=== PATIENT | male | born 1990 | race Two or more races ===

== ENCOUNTER 2024-06-06 12:36 | Inpatient (IN) | payer SELFPAY ==
[2024-06-06] VITALS (8 sets, daily range): BP systolic 120–121; BP diastolic 70–81; PULSE 82–102; RESP 16–18; TEMP 98–98.1; O2SAT 94–100
[~2024-06-06] VITALS: Ht 182.9 cm; Wt 86.0 kg
--- NOTE | 2024-06-06 13:57 | ED.PDOC ---
GI ASSESSMENT HPI Comments HPI: Poor Historian. 33-year-old male presents to emergency department for evaluation of three day history of right-sided abdominal pain with associated nausea but no vomiting. Pain is constant but worse with certain movement. Denies any other acute symptoms. VITALS; TEMP: 98.6 F HEART RATE; 102 02 SAT; 98% on room air RR; 144 BP; 121/82 PMH: asthma, kidney infection PSH: denies SOCIAL HISTORY: denies tobacco use, denies etoh use, denies drug use MEDS; denies ALLERGIES; nkda REVIEW OF SYSTEMS: CONSTITUTIONAL: Denies acute: fever, diaphoresis, chills, generalized weakness. HEAD: Denies acute: headache, photophobia Eyes: Denies acute: Double vision, vision loss, eye pain, eye discharge. EARS: Denies acute: tinnitus, hearing loss, ear discharge, ear pain, THROAT: Denies acute: sore throat, swelling, difficulty swallowing , pain with swallowing, change in voice. NECK: Denies acute: neck pain, neck swelling, stiff neck. HEART: Denies acute : chest pain, palpitations, LUNGS: Denies acute: SOB, wheezing, cough, hemoptysis ABDOMEN: Denies acute: Vomiting, diarrhea, melena , hematemesis, hematochezia SKIN: Denies acute: rash, redness, lesions, itchiness. EXTREMITIES: Denies acute: calf pain, numbness, tingling, weakness, denies pain in extremity. Denies acute: Low back pain. Neuro: Denies acute: focal neurological deficit, motor or sensory focal neurological deficit, tremors, seizure like activity, confusion, dizziness, change in mental status, loss of bowel or bladder function, cauda equina like symptoms. : Denies acute: dysuria, hematuria, flank pain, increase in urinary frequency. PSYCH: Denies acute: hallucination, suicidal ideation, homicidal ideation. PHYSICAL EXAM: General: no acute distress, awake and alert. Head: normocephalic, atraumatic. Neck: supple, trachea is midline, no swelling. Throat: Normal phonation. Eyes:, no erythema, no purulent discharge, no proptosis, no icterus. Heart: regular tachycardic, no significant murmur appreciated. Lungs: no apparent respiratory distress, Able to speak in full sentences. No wheezing, no rhonchi, no crackles. No stridors Clear to auscultation bilaterally. Abdomen: Right-sided of abdomen tender to palpation, non distended, soft, no guarding, no rebound, + bowel sounds. Neuro: Awake, Alert, oriented to name, self, situation, follows commands GCS=15. Speech is normal. Skin: no petechia, no purpura, no cyanosis, non-pale, not jaundice. Lower extremities: --no - Pitting edema no deformity, no focal swelling, no calf TTP. Makes eye contact. moves all four extremities. Face: no apparent facial droop. Ambulating in the ED independently. Chief Complaint: Abdominal Pain Time Seen by MD: 13:12 Reviewed Notes: Nurses Notes, Medications, Allergies Allergies: Coded Allergies: NO KNOWN ALLERGIES (Unverified , 06/06/24) Information Source: Patient Mode of Arrival: Ambulatory Brought in by: self Past Medical History PAST MEDICAL HISTORY: Asthma Surgical History: Denies all surgeries Family History Family History: Reviewed,noncontributory to illness Social History Smoker: Non-Smoker Alcohol: Denies ETOH Use Drugs: Denies Drug Use Lives In: Home Was a procedure done? Was a procedure done?: No GI differential Dx Differential Diagnosis: Other (DDX include but not limited to diverticulitis, colitis, gastroenteritis, acute abdomen, SBO, enteritis, constipation, volvulus, appendicitis, Gallbladder disease, choledocolithiasis, ascending cholangitis, pancreatitis, intraAbdominal mass/neoplasm, hepatitis, UTI, pylonephritis, kidney stone, aneurysm, dissection, Inflammatory bowel disease, gastroparesis, ischemic bowel.) X-Ray, Labs, Meds, VS Vital Signs Date Time Temp Pulse Resp B/P (MAP) Pulse Ox O2 Delivery O2 Flow Rate FiO2 06/06/24 15:19 82 18 98 Room Air* 0 21 06/06/24 15:18 98.2 80 18 111/60 (77) 98 98.2 06/06/24 13:41 96 06/06/24 13:41 96 06/06/24 13:22 98.6 102 14 121/82 (95) 98 Lab Test 06/06/24 13:59 06/06/24 13:20 Range/Units Urine Color Yellow Yellow Urine Clarity Clear Clear Urine pH 5.5 5.0-9.0 Urine Specific [place] 1.030 1.001-1.035 Urine Protein Trace H Negative Urine Ketones Negative Negative Urine Blood Negative Negative /uL Urine Nitrite Negative Negative Urine Bilirubin Negative Negative Urine Urobilinogen Normal Negative mg/dL Urine Leukocyte Esterase Negative Negative /uL Urine RBC 1 0 - 3 /hpf Urine WBC 1 0 - 3 /hpf Urine Squamous Epithelial Cells Few <5 /hpf Urine Bacteria None seen None Seen /hpf Urine Mucus Few None Seen Urine Glucose Normal Normal mg/dL Urine Opiates Screen Neg NEGATIVE Urine Fentanyl Screen Neg NEGATIVE Urine Barbiturates Screen Neg NEGATIVE Urine Phencyclidine Screen Neg NEGATIVE Urine Amphetamines Screen Neg NEGATIVE Urine Benzodiazepines Screen Neg NEGATIVE Urine Cocaine Screen Neg NEGATIVE Urine Cannabinoids Screen Neg NEGATIVE White Blood Count 16.1 H 4.4-10.8 10^3/uL Red Blood Count 5.71 4.5-5.90 10^6/uL Hemoglobin 17.6 H 13.5-17.5 g/dL Hematocrit 48.7 41.0-53.0 % Mean Corpuscular Volume 85.2 80.0-100.0 fL Mean Corpuscular Hemoglobin 30.8 28.0-32.0 pg Mean Corpuscular Hemoglobin Concent 36.2 H 32.0-36.0 g/dL Red Cell Distribution Width 13.2 11.8-14.3 % Platelet Count 168 140-450 10^3/uL Mean Platelet Volume 8.3 6.9-10.8 fL Neutrophils (%) (Auto) 77.4 37.0-80.0 % Lymphocytes (%) (Auto) 12.2 10.0-50.0 % Monocytes (%) (Auto) 9.8 0.0-12.0 % Eosinophils (%) (Auto) 0.4 0.0-7.0 % Basophils (%) (Auto) 0.2 0.0-2.0 % Neutrophils # (Auto) 12.5 H 1.6-8.6 10 ^3/uL Lymphocytes # (Auto) 2.0 0.4-5.4 10 ^3/uL Monocytes # (Auto) 1.6 H 0-1.3 10 ^3/uL Eosinophils # (Auto) 0.1 0-0.8 10 ^3/uL Basophils # (Auto) 0 0-0.2 10 ^3/uL Nucleated Red Blood Cells 0.4 % Sodium Level 141 136-145 mmol/L Potassium Level 3.7 3.5-5.1 mmol/L Chloride Level 104 98-107 mmol/L Carbon Dioxide Level 28 20-31 mmol/L Anion Gap 9 5-15 Blood Urea Nitrogen 9 9-23 mg/dL Creatinine 1.08 0.700-1.30 mg/dL Glomerular Filtration Rate Calc 94 >90 mL/min BUN/Creatinine Ratio 8.3 L 10.0-20.0 Serum Glucose 98 74-106 mg/dL Lactic Acid Level 0.7 0.4-2.0 mmol/L Calcium Level 10.1 8.7-10.4 mg/dL Total Bilirubin 1.0 0.2-1.0 mg/dL Aspartate Amino Transferase (AST) 17 13-40 U/L Alanine Aminotransferase (ALT) 64 H 7-40 U/L Alkaline Phosphatase 81 46-116 U/L Troponin I High Sensitivity < 3 L </=54 ng/L Total Protein 8.0 5.7-8.2 g/dL Albumin 5.1 H 3.2-4.8 g/dL Lipase 35 12-53 U/L Current Medications Medications (Trade) Dose Ordered Sig/Kevin Route Start Time Stop Time Status Last Admin Sodium Chloride 1,000 ml @ 1,000 mls/hr Q1H ONCE IV 06/06/24 14:30 06/06/24 15:29 DC 06/06/24 14:30 Piperacillin Sod/ Tazobactam Sod 100 ml @ 100 mls/hr ONCE ONCE IV 06/06/24 15:00 06/06/24 15:59 DC 06/06/24 15:16 [place] [id number] Ph: [phone] DIAGNOSTIC IMAGING Diagnostic Imaging Report : [id number] Signed PATIENT: DARVIN DAMONCCT: [id number] UNIT: [id number] : 1990 LOC: ER ROOM / BED: / AGE / SEX: 33 / M ADM STATUS: REG ER SERVICE [id number] ORDERING PHYSICIAN: TRINITY MARTINEZ DO PROCEDURE(s): ABPL - CT AB PEL WO CON-NO ORAL OR IV REASON: right abd pain ORDER NUMBER(s): [id number], ACCESSION NUMBER(s): [id number] Exam: CT CT AB PEL WO CON-NO ORAL OR IV History: right abd pain Comparison Study: None available at time of dictation. Technique: Multidetector CT of the abdomen and pelvis without contrast. Axial, coronal and sagittal multiplanar reformats were performed by the technologist on a separate workstation. Radiation Dose Information: CT Dose: CTDI volume is 13.43 mGy. Dose-length product is 676.56 mGy*cm Findings: Lung bases are clear. Partially visualized heart is unremarkable. Mild hepatomegaly with hepatic steatosis. Mild splenomegaly with no focal splenic lesions. Gallbladder, pancreas and adrenal glands unremarkable. Kidneys, ureters and urinary bladder unremarkable. Prostate measures 3.5 by 4.5 cm. Mild gastric wall thickening with mild wall thickening of the proximal duodenum. Wall thickening of the mildly distended terminal ileum. The remainder of the small bowel loops unremarkable. Appendix measures up to 1.2 cm with appendicoliths proximally and distally and adjacent inflammatory reaction. Mild wall thickening of the ascending, transverse and descending colons. The sigmoid and rectum are unremarkable. No evidence of intraperitoneal free air. Trace amount of free fluid within the pelvis which is most likely from the acute appendicitis. No evidence of aortic aneurysm. Shotty mesenteric lymph nodes. Small fat containing umbilical hernia. Sclerotic focus of the left acetabulum with small sclerotic foci of the bilateral proximal femur which may represent a bone islands/blastic lesions. IMPRESSION: Findings consistent with acute appendicitis. Colitis involving ascending colon, transverse colon and descending colon. Mild wall thickening of the stomach and duodenum which may be due to inadequate distention with gastroenteritis not excluded. Wall thickening of the terminal ileum correlate for ileitis/ neoplasm. Hepatomegaly with hepatic steatosis. ATED BY: SHIVANI QUINTANA DO DICTATED DATE/TIME: 06/06/241441 SIGNED BY: SHIVANI QUINTANA DO SIGNED DATE/TIME: 06/06/241441 CC: Time of 1ST Reevaluation: 16:20 Reevaluation 1ST: Unchanged Patient Education/Counseling: Diagnosis, Treatment Family Education/Counseling: No Family Present Comments Patient presented with the above HPI.-abdominal pain-----workup was initiated. patient was found with the above mentioned diagnosis. Patient was given: Zosyn and fluids Patient ED course and VS have been stabilized. Patient has been reassessed in the ED and remained in a stable condition. Pertinent incidental findings were discussed with the patient and/or family. Patient/family voices understanding and is agreeable with plan. Patient has been observed in the ED adequate length of time to insure improvement/stability. patient was admitted to the medicine team for further evaluation and treatment of their presentation. General surgery came to the ER evaluated the patient at bedside. All the reports of any imaging studies that were ordered by myself were reviewed by myself. Departure 1 Departure Time of Disposition: 14:54 Impression: Primary Impression: Acute appendicitis Additional Impression: Leukocytosis Disposition: ADMITTED INPATIENT Admit to: Tele Condition: Stable Discharged With: Self Critical Care Note Critical Care Time?: No I personally scribed for TRINITY MARTINEZ DO ([email or web address]) on 06/06/24 at 13:57. Electronically submitted by Ros Johansen ([email or web address]). I personally scribed for TRINITY MARTINEZ DO ([email or web address]) on 06/06/24 at 14:05. Electronically submitted by Ros Johansen ([email or web address]). I personally scribed for TRINITY MARTINEZ DO ([email or web address]) on 06/06/24 at 15:15. Electronically submitted by Ros Johansen ([email or web address]). TRINITY MARTINEZ DO Jun 06, 2024 13:57
[2024-06-06 14:02] LABS: Basophils # (auto) 0 10 ^3/uL (0-0.2); Basophils % (auto) 0.2 % (0.0-2.0); Eosinophils # (auto) 0.1 10 ^3/uL (0-0.8); Eosinophils % (auto) 0.4 % (0.0-7.0); Hematocrit 48.7 % (41.0-53.0); Hemoglobin 17.6 g/dL (13.5-17.5); Lymphocytes % (auto) 12.2 % (10.0-50.0); Mean Corpuscular Hemoglobin 30.8 pg (28.0-32.0); Mean Corpuscular Hgb Conc. 36.2 g/dL (32.0-36.0); Mean Corpuscular Volume 85.2 fL (80.0-100.0); Monocytes # (auto) 1.6 10 ^3/uL (0-1.3); Monocytes % (auto) 9.8 % (0.0-12.0); Neutrophils # (auto) 12.5 10 ^3/uL (1.6-8.6); Neutrophils % (auto) 77.4 % (37.0-80.0); Nucleated Red Blood Cells % 0.4 %; Platelet Count (auto) 168 10^3/uL (140-450); Red Blood Cells 5.71 10^6/uL (4.5-5.90); Red Cell Distribution Width 13.2 % (11.8-14.3); White Blood Cell 16.1 10^3/uL (4.4-10.8)
[2024-06-06 14:17] LABS: Alanine Aminotransferase 64 U/L (7-40); Albumin 5.1 g/dL (3.2-4.8); Alkaline Phosphatase 81 U/L (46-116); Anion Gap 9 (5-15); Aspartate Aminotransferase 17 U/L (13-40); BUN/Creatinine Ratio 8.3 (10.0-20.0); Blood Urea Nitrogen 9 mg/dL (9-23); Calcium 10.1 mg/dL (8.7-10.4); Carbon Dioxide 28 mmol/L (20-31); Chloride 104 mmol/L (98-107); Glucose 98 mg/dL (74-106); Potassium 3.7 mmol/L (3.5-5.1); Sodium 141 mmol/L (136-145)
[2024-06-06] MEDS: SODIUM CHLORIDE 0.9% 1,000 ML IV ONE ×2 (14:30→19:00)
[2024-06-06] MEDS ORDERED: cefTRIAXone 1GM/50ML D5W 50 ML IV ONE (14:30)
--- NOTE | 2024-06-06 14:45 | DVH ---
Exam: CT CT AB PEL WO CON-NO ORAL OR IV History: right abd pain Comparison Study: None available at time of dictation. Technique: Multidetector CT of the abdomen and pelvis without contrast. Axial, coronal and sagittal m ultiplanar reformats were performed by the technologist on a separate workstation. Radiation Dose Information: CT Dose: CTDI volume is 13.43 mGy. Dose-length product is 676.56 mGy*cm Findings: Lung bases are clear. Partially visualized heart is unremarkable. Mild hepatomegaly with hepatic steatosis. Mild splenomegaly with no focal splenic lesions. Gallbladde r, pancreas and adrenal glands unremarkable. Kidneys, ureters and urinary bladder unremarkable. Prostate measures 3.5 by 4.5 cm. Mild gastric wall thickening with mild wall thickening of the proximal duodenum. Wall thickening of t he mildly distended terminal ileum. The remainder of the small bowel loops unremarkable. Appendix alejandra sures up to 1.2 cm with appendicoliths proximally and distally and adjacent inflammatory reaction. Mi ld wall thickening of the ascending, transverse and descending colons. The sigmoid and rectum are unr emarkable. No evidence of intraperitoneal free air. Trace amount of free fluid within the pelvis which is most likely from the acute appendicitis. No evidence of aortic aneurysm. Shotty mesenteric lymph nodes. Small fat containing umbilical hernia. Sclerotic focus of the left acetabulum with small sclerotic fo ci of the bilateral proximal femur which may represent a bone islands/blastic lesions. IMPRESSION: Findings consistent with acute appendicitis. Colitis involving ascending colon, transverse colon and descending colon. Mild wall thickening of the stomach and duodenum which may be due to inadequate distention with gastr oenteritis not excluded. Wall thickening of the terminal ileum correlate for ileitis/ neoplasm. Hepatomegaly with hepatic steatosis.
[2024-06-06 14:56] LABS: Urine Bacteria None Seen /hpf (None Seen)
[2024-06-06 15:09] LABS: Lipase 35 U/L (12-53)
[2024-06-06] MEDS: PIPERACILLIN-TAZOB 3.375GM 100 ML IV ONE (15:16)
[2024-06-06 15:17] LABS: Urine Blood Negative /uL (Negative); Urine Clarity Clear (Clear); Urine Color Yellow (Yellow); Urine Mucus FEW (None Seen); Urine Protein, UAD TRACE (Negative); Urine Urobilinogen Normal (Negative); Urine WBC 1 /hpf (0 - 3); Urine pH 5.5 (5.0-9.0)
[2024-06-06 15:27] LABS: Amphetamine Screen, Urine Neg (NEGATIVE); Barbiturate Scree,Urine Neg (NEGATIVE); Benzodiazephine Screen, Urine Neg (NEGATIVE)
[2024-06-06 15:28] LABS: Cannabinoid Screen, Urine Neg (NEGATIVE); Cocaine Screen, Urine Neg (NEGATIVE); Opiate Scree,Urine Neg (NEGATIVE); Phencyclidine Screen, Urine Neg (NEGATIVE)
--- NOTE | 2024-06-06 15:41 | DVHINCON2 ---
Date of service: Jun 06, 2024 History of Present Illness 33-year-old otherwise healthy male complaining of three day history of right lower quadrant abdominal pain without fevers chills nausea or vomiting. Past Medical History None Past Surgical History None Family History Noncontributory Social History Reports rare alcohol use. Denies any tobacco or IV drug use. Allergies: Coded Allergies: NO KNOWN ALLERGIES (Unverified , 06/06/24) Vital Signs Vital Signs Date Time Temp Pulse Resp B/P (MAP) Pulse Ox O2 Delivery O2 Flow Rate FiO2 06/06/24 15:18 98.2 80 18 111/60 (77) 98 98.2 Physical Exam GEN: Age-appropriate male in no acute distress. Alert. HEENT: Normocephalic atraumatic. Moist mucous membranes. Anicteric sclerae. CV: RRR Respiratory: CTAB ABD: Localized right lower quadrant tenderness to palpation with minimal guarding. Nondistended. CT of the abdomen and pelvis: Appendix measuring up to 1.2 cm with appendicolith it is with adjacent inflammatory reaction consistent with acute appendicitis Labs/Diagnostic Data Labs Test 06/06/24 13:59 06/06/24 13:20 Range/Units Urine Color Yellow Yellow Urine Clarity Clear Clear Urine pH 5.5 5.0-9.0 Urine Specific [place] 1.030 1.001-1.035 Urine Protein Trace H Negative Urine Ketones Negative Negative Urine Blood Negative Negative /uL Urine Nitrite Negative Negative Urine Bilirubin Negative Negative Urine Urobilinogen Normal Negative mg/dL Urine Leukocyte Esterase Negative Negative /uL Urine RBC 1 0 - 3 /hpf Urine WBC 1 0 - 3 /hpf Urine Squamous Epithelial Cells Few <5 /hpf Urine Bacteria None seen None Seen /hpf Urine Mucus Few None Seen Urine Glucose Normal Normal mg/dL Urine Opiates Screen Neg NEGATIVE Urine Fentanyl Screen Neg NEGATIVE Urine Barbiturates Screen Neg NEGATIVE Urine Phencyclidine Screen Neg NEGATIVE Urine Amphetamines Screen Neg NEGATIVE Urine Benzodiazepines Screen Neg NEGATIVE Urine Cocaine Screen Neg NEGATIVE Urine Cannabinoids Screen Neg NEGATIVE White Blood Count 16.1 H 4.4-10.8 10^3/uL Red Blood Count 5.71 4.5-5.90 10^6/uL Hemoglobin 17.6 H 13.5-17.5 g/dL Hematocrit 48.7 41.0-53.0 % Mean Corpuscular Volume 85.2 80.0-100.0 fL Mean Corpuscular Hemoglobin 30.8 28.0-32.0 pg Mean Corpuscular Hemoglobin Concent 36.2 H 32.0-36.0 g/dL Red Cell Distribution Width 13.2 11.8-14.3 % Platelet Count 168 140-450 10^3/uL Mean Platelet Volume 8.3 6.9-10.8 fL Neutrophils (%) (Auto) 77.4 37.0-80.0 % Lymphocytes (%) (Auto) 12.2 10.0-50.0 % Monocytes (%) (Auto) 9.8 0.0-12.0 % Eosinophils (%) (Auto) 0.4 0.0-7.0 % Basophils (%) (Auto) 0.2 0.0-2.0 % Neutrophils # (Auto) 12.5 H 1.6-8.6 10 ^3/uL Lymphocytes # (Auto) 2.0 0.4-5.4 10 ^3/uL Monocytes # (Auto) 1.6 H 0-1.3 10 ^3/uL Eosinophils # (Auto) 0.1 0-0.8 10 ^3/uL Basophils # (Auto) 0 0-0.2 10 ^3/uL Nucleated Red Blood Cells 0.4 % Sodium Level 141 136-145 mmol/L Potassium Level 3.7 3.5-5.1 mmol/L Chloride Level 104 98-107 mmol/L Carbon Dioxide Level 28 20-31 mmol/L Anion Gap 9 5-15 Blood Urea Nitrogen 9 9-23 mg/dL Creatinine 1.08 0.700-1.30 mg/dL Glomerular Filtration Rate Calc 94 >90 mL/min BUN/Creatinine Ratio 8.3 L 10.0-20.0 Serum Glucose 98 74-106 mg/dL Lactic Acid Level 0.7 0.4-2.0 mmol/L Calcium Level 10.1 8.7-10.4 mg/dL Total Bilirubin 1.0 0.2-1.0 mg/dL Aspartate Amino Transferase (AST) 17 13-40 U/L Alanine Aminotransferase (ALT) 64 H 7-40 U/L Alkaline Phosphatase 81 46-116 U/L Troponin I High Sensitivity < 3 L </=54 ng/L Total Protein 8.0 5.7-8.2 g/dL Albumin 5.1 H 3.2-4.8 g/dL Lipase 35 12-53 U/L Assessment 1. Acute appendicitis Plan/Recommendation 1. Laparoscopic appendectomy possible open surgery Informed consent: The surgery and its risks including but not limited to infection, bleeding requiring possible blood transfusion with the risk of hepatitis or HIV infection, open surgery, possibility that the abdominal pain is caused by different intra-abdominal pathology other than acute appendicitis in which case we will proceed with the appendectomy if it is safe to do so and then treat the problem according to intraoperative findings were explained to the patient. All questions were answered to his satisfaction. He expressed verbal understanding and wished to proceed with the surgery. Plan discussed with: Patient FIOR ODOM MD Jun 06, 2024 15:41
[2024-06-06] MEDS: ACETAMINOPHEN IV 1000 MG/100ML (10MG/ML) IV ONE (15:45)
[2024-06-06] MEDS: GABAPENTIN 400 MG CAP PO ONE (15:45)
[2024-06-06] MEDS: CELECOXIB 100 MG CAP PO ONE (15:45)
[2024-06-06] MEDS: LIDOCAINE W/ EPINEPHRINE 1% 20ML VIAL ONE (15:48)
[2024-06-06] MEDS ORDERED: LIDOCAINE 2% (LOCAL ANESTH.) PF 5ml SDV ONE (15:50)
[2024-06-06] MEDS ORDERED: ONDANSETRON HCL 4 MG/2 ML VIAL ONE (15:52)
[2024-06-06] MEDS ORDERED: DexAMETHasone SOD PHOS 10MG/1ML VIAL INJ ONE (15:52)
[2024-06-06] MEDS ORDERED: KETOROLAC TROMETH 30 MG/ML 1ML VIAL ONE (15:52)
[2024-06-06] MEDS ORDERED: KETAMINE 50mg/ML 1ml syringe ONE (15:52)
[2024-06-06] MEDS ORDERED: fentaNYL CITRATE 100 MCG/2 ML VL ONE (15:53)
[2024-06-06] MEDS ORDERED: GLYCOPYRROLATE 0.2 MG/ML 1ML VIAL ONE (15:53)
[2024-06-06] MEDS ORDERED: ROCURONIUM 10MG/ML 10ML VIAL IV ONE (15:53)
[2024-06-06] MEDS ORDERED: SUGAMMADEX 200mg/2ml Vial (100MG/ML) IV ONE (15:53)
[2024-06-06] MEDS ORDERED: PROPOFOL 10 MG/ML 20 ML IV ONE (15:53)
[2024-06-06] MEDS ORDERED: LIDOCAINE 2% TOPICAL JELLY 5 ML URJT TOP ONE (15:54)
--- NOTE | 2024-06-06 17:44 | DVHOP2 ---
Operative Report - 2 Report Details Date: 06/06/24 Preop Diagnosis: 1. Acute appendicitis Postop Diagnosis: 1. Same Surgeon: Fior Odom MD Tool Storage Attendant: None Anesthesiologist: Asad Ojeda CRNA Anesthesia: General, Local Consent: The surgery and its risks including but not limited to infection, bleeding req uiring possible blood transfusion with the risk of hepatitis or HIV infection, open surgery, possible perioperative VT or stroke were explained to the patient. All questions were answered to his satisfaction. He expressed verbal understanding and wished to proceed with the surgery. Complications: None Estimated Blood Loss: 20 mL Fluids: 800 mL Name of Procedure Performed Laparoscopic appendectomy Procedure Details Procedure Details: After induction of general anesthesia, a Velarde catheter was placed by the OR nursing staff. Patient's abdomen was prepped and draped in standard surgical fashion. A small infraumbilical incision was made and this incision was taken through the abdominal wall down to the fascia which was opened sharply. Peritoneum was then bluntly divided gaining access to the intra-abdominal cavity. Interrupted 0 Vicryl sutures were placed through the fascial incision and using an open technique, Warren trocar was introduced and secured using the Vicryl sutures. Abdomen was insufflated to 15 mmHg and camera was inserted. Visual examination of the intestine under the fascial incision appeared normal without injury. Under direct visualization, a 5 mm bladeless trocar was placed in the left lower quadrant and a 2nd 5 mm bladeless trocar was placed in the suprapubic region both under direct visualization. Examination of the right lower quadrant revealed inflamed appendix without gross perforation. The mesoappendix was stapled and divided using vascular endo stapler up to the base of the appendix. The base of the appendix was then stapled and divided using a regular endo stapler. The appendix was then removed from the abdominal cavity using an endo pouch bag and sent off the surgical field. Abdomen was then re- insufflated and staple line was examined. It appeared intact without leaks or bleeding. There was small amount of serosanguineous fluid collected in the pe lvis and this was aspirated. Pelvic area was then well irrigated until fluid was clear. Attention was turned towards the right lower quadrant and the surgical site and the staple line appeared intact without leaks or bleeding. Trocars were then removed under direct visualization as the abdomen was deflated. Additional interrupted 0 Vicryl sutures were placed through the infraumbilical fascial incision and the sutures were tied down closing off the infraumbilical fascia. Surgical sites were irrigated injected with 20 mL of 1% lidocaine with epinephrine. Skin incisions were closed using rishabh. Surgical sites were cleaned and dried and dressings were applied. Sponge, needle, instrument count at the end of the case were reported to be correct by the [facility] staff. The patient tolerated procedure well and was awake, extubated and transferred to recovery in stable condition. Specimen: Appendix Condition Stable Disposition Still a Patient FIOR ODOM MD Jun 06, 2024 17:44
[2024-06-06] MEDS ORDERED: ePHEDrine SULFATE 50 MG/ML AMP IV PRN (18:00)
[2024-06-06] MEDS ORDERED: HYDROMORPHONE HCL 1 MG/ML INJ IV PRN (18:00)
[2024-06-06] MEDS ORDERED: HYDROmorphone HCL 2 MG/ML VL/or syr IV PRN (18:00)
[2024-06-06] MEDS ORDERED: ONDANSETRON HCL 4 MG/2 ML VIAL IV PRN ×2 (18:00)
[2024-06-06] MEDS ORDERED: hydrALAZINE HCL 20 MG/ML VL IV PRN (18:00)
[2024-06-06] MEDS ORDERED: ALBUTEROL SULF 2.5 MG/0.5ML(0.5%) NEB SOLN NEB PRN (18:00)
[2024-06-06] MEDS ORDERED: FLUMAZENIL 0.1 MG/ML INJ 10ML MDV IV PRN (18:00)
[2024-06-06] MEDS ORDERED: fentaNYL CITRATE 100 MCG/2 ML VL IV PRN (18:00)
[2024-06-06] MEDS ORDERED: NALOXONE HCL 0.4 MG/ML VIAL IV PRN (18:00)
--- NOTE | 2024-06-06 18:16 | DVHHP2 ---
History of Present Illness Reason for Visit: Acute appendicitis History of Present Illness 33-year-old male presented to the ED with complaint of right lower quadrant abdominal pain without fever, chills, nausea or vomiting, patient also reports decreased appetite and constipation. Patient denies chest pain, headache, dizziness, diaphoresis, shortness of breath, fever, or chills. Patient was admitted for further evaluation medical management. Past Medical History Asthma, GERD Past Surgical History Denies Family History Reviewed noncontributory to the management of this case Smoke: No ALCOHOL: rare Drugs: None Lives: with Family Review of Systems Constitutional: No: Fever, Chills, Sweats, Weakness, Malaise, Other Eyes: No: Pain, Vision change, Conjunctivae inflammation, Eyelid inflammation, Other, Redness ENT: No: Ear pain, Ear discharge, Nose pain, Nose discharge, Nose congestion, Mouth pain, Mouth swelling, Throat pain, Throat swelling, Other Respiratory: No: Cough, Dry, Shortness of breath, SOB with excertion, Wheezing, Hemoptysis, Pleuritic Pain, Sputum, Wheezing, Other Cardiovascular: No: Chest Pain, Palpitations, Orthopnea, Paroxysmal Noc. Dyspnea, Edema, Lt Headedness, Other Gastrointestinal: Abdominal Pain Genitourinary: No Dysuria, No Frequency, No Incontinence, No Hematuria, No Re tention, No Other Musculoskeletal: No: other, neck pain, shoulder pain, arm pain, back pain, hand pain, leg pain, foot pain Skin: No: Rash, Lesions, Jaundice, Bruising, Other Neurological: No: Weakness, Numbness, Incoordination, Change in speech, Confusion, Seizures, Other Allergies: Coded Allergies: NO KNOWN ALLERGIES (Unverified , 06/06/24) Medications Current Medications Medications Dose Ordered Sig/Kevin Route Start Time Stop Time Status Last Admin Dose Admin Piperacillin Sod/ Tazobactam Sod 100 ml @ 100 mls/hr Q8HR IV 06/06/24 22:00 Naloxone HCl 0.4 mg Q10M PRN IV 06/06/24 18:00 06/06/24 18:21 Hydralazine HCl 5 mg Q10M PRN IV 06/06/24 18:00 06/06/24 18:51 Ephedrine Sulfate 10 mg Q10M PRN IV 06/06/24 18:00 06/06/24 18:41 Hydromorphone HCl 0.5 mg Q10M PRN IV 06/06/24 18:00 06/06/24 18:41 Oxycodone HCl 10 mg ONCE PRN PO 06/06/24 18:00 Hydromorphone HCl 0.5 mg Q4HPRN PRN IV 06/06/24 18:00 Ondansetron HCl 4 mg Q4HPRN PRN IV 06/06/24 18:00 Albuterol 2.5 mg Q4HPRN PRN NEB 06/06/24 18:00 Pantoprazole Sodium 40 mg DAILY IV 06/07/24 10:00 Exam Vital Signs Vital Signs Date Time Temp Pulse Resp B/P (MAP) Pulse Ox O2 Delivery O2 Flow Rate FiO2 06/06/24 15:19 82 18 98 Room Air* 0 21 06/06/24 15:18 98.2 111/60 (77) 98.2 General Appearance: Alert, Oriented X3, Cooperative, No acute distress HEENT: Atraumatic, PERRLA, EOMI, Mucous membr. moist/pink Respiratory: Clear to auscultation, Normal air movement Cardiovascular: Regular rate, Normal S1, Normal S2, No murmurs Abdominal: Normal bowel sounds, Soft, No tenderness, No hepatospenomegaly, No masses Extremities: No clubbing, No cyanosis, No edema, Normal pulses, No tenderness/swelling Skin: No rashes, No breakdown, No significant lesion Neuro: Normal gait, Normal speech, Strength at 5/5 X4 ext, Normal tone, Sensation intact, Cranial nerves 3-12 NL, Reflexes 2+ Psych/Mental Status: Mental status NL, Mood NL Labs/Xrays Labs, imaging and ED notes reviewed Labs Test 06/06/24 13:59 06/06/24 13:20 Range/Units Urine Color Yellow Yellow Urine Clarity Clear Clear Urine pH 5.5 5.0-9.0 Urine Specific [place] 1.030 1.001-1.035 Urine Protein Trace H Negative Urine Ketones Negative Negative Urine Blood Negative Negative /uL Urine Nitrite Negative Negative Urine Bilirubin Negative Negative Urine Urobilinogen Normal Negative mg/dL Urine Leukocyte Esterase Negative Negative /uL Urine RBC 1 0 - 3 /hpf Urine WBC 1 0 - 3 /hpf Urine Squamous Epithelial Cells Few <5 /hpf Urine Bacteria None seen None Seen /hpf Urine Mucus Few None Seen Urine Glucose Normal Normal mg/dL Urine Opiates Screen Neg NEGATIVE Urine Fentanyl Screen Neg NEGATIVE Urine Barbiturates Screen Neg NEGATIVE Urine Phencyclidine Screen Neg NEGATIVE Urine Amphetamines Screen Neg NEGATIVE Urine Benzodiazepines Screen Neg NEGATIVE Urine Cocaine Screen Neg NEGATIVE Urine Cannabinoids Screen Neg NEGATIVE White Blood Count 16.1 H 4.4-10.8 10^3/uL Red Blood Count 5.71 4.5-5.90 10^6/uL Hemoglobin 17.6 H 13.5-17.5 g/dL Hematocrit 48.7 41.0-53.0 % Mean Corpuscular Volume 85.2 80.0-100.0 fL Mean Corpuscular Hemoglobin 30.8 28.0-32.0 pg Mean Corpuscular Hemoglobin Concent 36.2 H 32.0-36.0 g/dL Red Cell Distribution Width 13.2 11.8-14.3 % Platelet Count 168 140-450 10^3/uL Mean Platelet Volume 8.3 6.9-10.8 fL Neutrophils (%) (Auto) 77.4 37.0-80.0 % Lymphocytes (%) (Auto) 12.2 10.0-50.0 % Monocytes (%) (Auto) 9.8 0.0-12.0 % Eosinophils (%) (Auto) 0.4 0.0-7.0 % Basophils (%) (Auto) 0.2 0.0-2.0 % Neutrophils # (Auto) 12.5 H 1.6-8.6 10 ^3/uL Lymphocytes # (Auto) 2.0 0.4-5.4 10 ^3/uL Monocytes # (Auto) 1.6 H 0-1.3 10 ^3/uL Eosinophils # (Auto) 0.1 0-0.8 10 ^3/uL Basophils # (Auto) 0 0-0.2 10 ^3/uL Nucleated Red Blood Cells 0.4 % Sodium Level 141 136-145 mmol/L Potassium Level 3.7 3.5-5.1 mmol/L Chloride Level 104 98-107 mmol/L Carbon Dioxide Level 28 20-31 mmol/L Anion Gap 9 5-15 Blood Urea Nitrogen 9 9-23 mg/dL Creatinine 1.08 0.700-1.30 mg/dL Glomerular Filtration Rate Calc 94 >90 mL/min BUN/Creatinine Ratio 8.3 L 10.0-20.0 Serum Glucose 98 74-106 mg/dL Lactic Acid Level 0.7 0.4-2.0 mmol/L Calcium Level 10.1 8.7-10.4 mg/dL Total Bilirubin 1.0 0.2-1.0 mg/dL Aspartate Amino Transferase (AST) 17 13-40 U/L Alanine Aminotransferase (ALT) 64 H 7-40 U/L Alkaline Phosphatase 81 46-116 U/L Troponin I High Sensitivity < 3 L </=54 ng/L Total Protein 8.0 5.7-8.2 g/dL Albumin 5.1 H 3.2-4.8 g/dL Lipase 35 12-53 U/L Assessment/Plan Assessment/Plan Acute appendicitis Admit to medical/surgical Surgery consulted Dr. wynn- laparoscopic appendectomy done Keep dressings clean dry and intact Keep abdominal binder in place Antibiotics Incentive spirometry Early ambulation Pain control-Pain medication p.r.n. Zofran p.r.n. nausea History asthma Albuterol p.r.n. History GERD Protonix IV FEN/PPX Protonix VTE prophylaxis not indicated SCDs Diet as per surgical Plan discussed with: Patient My Orders Orders - DANIEL HARRIS Procedure Category Date Status Time Admit ADMIT 06/06/24 Transmitted 17:57 Code Status CODE 06/06/24 Transmitted 17:57 Vital Signs [facility] 06/06/24 In Process 17:57 Review Orders With [facility] 06/06/24 In Process Adm. 17:57 Notify Of Changes [facility] 06/06/24 In Process From Base 17:57 Advance Directive [facility] 06/06/24 In Process 17:57 Basic Metabolic Panel LAB 06/07/24 Verified 04:00 Complete Blood Count LAB 06/07/24 Verified 04:00 Patient Condition ORDERS 06/06/24 Transmitted 17:57 Allergies [facility] 06/06/24 In Process 17:57 Hydromorphone Hcl Inj PHA 06/06/24 In Process (Dilaudid Innjecti 18:00 Ondansetron Hcl PHA 06/06/24 In Process (Zofran) 18:00 Albuterol Medneb PHA 06/06/24 In Process (Ventolin Medneb) 18:00 Pantoprazole PHA 06/07/24 In Process (Protonix) 10:00 Date of Service: Jun 06, 2024 Billing Provider: DANIEL HARRIS Common Visit Codes: [id number] INP/OBS CARE (HIGH) DANIEL HARRIS Jun 06, 2024 18:15
--- NOTE | 2024-06-06 19:06 | ECG ---
[facility] Test Date: 2024-06-06 Test Time: 13:41:44 Pat Name: TOM BOWSER Department: er Room: 0251 Gender: M Electronic Specialist: ruth : [id number] Requested By: TRINITY MARTINEZ Order Number: [id number] Reading MD: Matt Rowley Measurements Intervals [place] Rate: 96 P: 67 DE: 141 QRS: 82 QRSD: 98 T: 41 QT: 340 QTc: 430 Interpretive Statements Sinus rhythm ST elev, probable normal early repol pattern Electronically Signed On 06-13-2024 13:15:24 PST by Matt Rowley Please click the below link to view image of tracing.
[2024-06-06] MEDS ORDERED: QUET50TA PO (20:24)
[2024-06-06] MEDS: PIPERACILLIN-TAZOB 3.375GM 100 ML IV SCH (21:17)
[2024-06-07] VITALS (10 sets, daily range): BP systolic 100–128; BP diastolic 53–75; PULSE 67–101; RESP 16–19; TEMP 97.2–98.4; O2SAT 93–99
[2024-06-07 06:36] LABS: Basophils # (auto) 0 10 ^3/uL (0-0.2); Eosinophils # (auto) 0 10 ^3/uL (0-0.8); Hematocrit 45.6 % (41.0-53.0); Hemoglobin 16.3 g/dL (13.5-17.5); Lymphocytes # (auto) 0.7 10 ^3/uL (0.4-5.4); Lymphocytes % (auto) 4.1 % (10.0-50.0); Mean Corpuscular Hemoglobin 30.5 pg (28.0-32.0); Mean Corpuscular Hgb Conc. 35.7 g/dL (32.0-36.0); Mean Corpuscular Volume 85.4 fL (80.0-100.0); Monocytes # (auto) 1.1 10 ^3/uL (0-1.3); Monocytes % (auto) 6.4 % (0.0-12.0); Neutrophils # (auto) 14.9 10 ^3/uL (1.6-8.6); Neutrophils % (auto) 89.5 % (37.0-80.0); Nucleated Red Blood Cells % 0.1 %; Platelet Count (auto) 155 10^3/uL (140-450); Red Blood Cells 5.34 10^6/uL (4.5-5.90); Red Cell Distribution Width 13.1 % (11.8-14.3); White Blood Cell 16.7 10^3/uL (4.4-10.8)
[2024-06-07 06:43] LABS: Anion Gap 10 (5-15); Carbon Dioxide 26 mmol/L (20-31); Chloride 106 mmol/L (98-107); Sodium 142 mmol/L (136-145)
[2024-06-07 06:44] LABS: Calcium 9.7 mg/dL (8.7-10.4)
[2024-06-07 06:49] LABS: BUN/Creatinine Ratio 12.5 (10.0-20.0); Blood Urea Nitrogen 11 mg/dL (9-23); Glucose 154 mg/dL (74-106)
[2024-06-07] MEDS: oxyCODONE HCL 5MG TAB PO PRN ×2 (08:20→21:04)
--- NOTE | 2024-06-07 09:59 | DVHPNRES ---
Progress Note Date Seen: Jun 07, 2024 Resident Creating Document: ANNMARIE RIGGS RESIDENT Has the PT tested + for MRSA If YES, has PT been informed?: No Medical Necessity Reason Pt with a Central, PICC or Fol: Yes Subjective Review of Systems Saw the patient at the bedside, doing better, passing flatus but not passed stool yet. Patient reports: No new complaints Changes from previous H/P or p: No Changes Review of Systems: HEENT:Normal, CVS:Normal, RESPIRATORY:Normal, GI:Abnormal (Surgical wound, local wound, local tenderness), :Normal, MSK:Normal, NEURO:Normal Objective vital signs Vital Sign Date Time Temp Pulse Resp B/P (MAP) Pulse Ox O2 Delivery O2 Flow Rate FiO2 06/07/24 08:15 99 Room Air* 0 21 06/07/24 05:00 98.4 101 16 119/63 (81) 98.4 Total Intake and Output 06/06/24 06/06/24 06/07/24 15:00 23:00 07:00 Intake Total 750 ml Output Total 1300 ml Balance -550 ml medications Current Medications Medications Dose Ordered Sig/Kevin Route Start Time Stop Time Status Last Admin Dose Admin Piperacillin Sod/ Tazobactam Sod 100 ml @ 100 mls/hr Q8HR IV 06/06/24 22:00 06/07/24 05:28 100 MLS/HR Oxycodone HCl 10 mg ONCE PRN PO 06/06/24 18:00 06/07/24 08:20 10 MG Hydromorphone HCl 0.5 mg Q4HPRN PRN IV 06/06/24 18:00 Ondansetron HCl 4 mg Q4HPRN PRN IV 06/06/24 18:00 Albuterol 2.5 mg Q4HPRN PRN NEB 06/06/24 18:00 Pantoprazole Sodium 40 mg DAILY IV 06/07/24 10:00 Examination: GENERAL:Normal, HEENT:Normal, NECK:Normal, LUNGS:Normal, CVS:Normal, ABDOMEN:Abnormal (Bowel sounds positive, local tenderness, no complications,.), MSK:Normal, SKIN:Normal, NEURO:Normal, :Normal laboratory and microbiology Laboratory Tests 06/07/24 05:23 Test 06/07/24 05:23 Range/Units Serum Glucose 154 H 74-106 mg/dL Labs and/or images reviewed: Labs reviewed by me, Image(s) reviewed by me Problem List/Assessment/Plan Problem List/Assessment/Plan Hospital Course: Mr. Miesha Kennedy, 33-year-old young male with past medical history significant for asthma, anxiety/depression, and GERD presented to the emergency department with right lower quadrant abdominal pain, decreased appetite, and constipation, but no fever, chills, nausea, vomiting, chest pain, headache, dizziness, diaphoresis, or shortness of breath. He was admitted for further evaluation and medical management. His past medical history includes, with no past surgical history. Family history is noncontributory. He does not smoke, rarely drinks alcohol, does not use drugs, and lives with his family. patient was evaluated by surgical team, consulted Dr. Irving and undergone laparoscopic appendicectomy on 06/06/2024. # Acute appendicitis: Presented with acute appendicitis, data lower quadrant pain, rovsing, positive local tenderness with, GI symptoms resolved, on IV Zosyn, status post appendicectomy. Postsurgical day 1. # Pancolitis: possible colitis involving ascending colon transverse colon descending colon , noted in CT abdomen. # Sepsis at presentation: Heart rate, leukocytosis and sources of infection were remarkable, status post IV antibiotics and IV fluid patient is improving. Still elevated white count. Daily CBC to follow. Blood pressure on the softer side, we will continue 125 cc/hour of Ringer lactate for now. # Hepatic steatosis: Patient works a day [employer] and eating habits related counseling done. Avoid high cholesterol high fat food. CMP unremarkable. # Possible gastroenteritis: Although not remarkable signs and symptoms. Status post IV antibiotics and IV fluid nausea vomiting and all GI symptoms subsided. # post surgical care: post-operative care including keeping dressings clean and dry, maintaining an abdominal binder, avoid straining, administering antibiotics, using incentive spirometry, encouraging early ambulation, and providing pain and nausea medications as needed. Discussed with Dr. Irving, patient will be discharged home with 5 days of Augmentin 875 b.i.d. At discharge patient will follow with Dr. Irving's clinic. # history of asthma: nonsmoker, non allergic to known allergens, no recent exacerbation albuterol p.r.n. # anxiety/depression: at home he uses sertraline 50 mg daily, which is gets supplies from [facility]. Started the patient on fluoxetine 40 mg daily. # PUD prophylaxis: Protonix IV> we will switch to oral. # DVT prophylaxis: SCDs movement as tolereated PCP: Patient does not have any established PCP. At discharge we will follow up with discharge Clinic. Barriers to discharge: Postsurgical day 1, tolerating diet well, if patient remains hemodynamically stable and improved gradually with resolving leukocytosis , we will consider discharge. Case discussed with Dr. Buckley. Code status: Full code. Complex patient care discussion needed total 39 minutes. Plan discussed with: Patient, Other (Primary team.) My Orders My Orders Orders - ANNMARIE RIGGS Procedure Category Date Status Time Stool Bacterial MISSY 06/07/24 Logged Culture 09:39 Stool Wbc LAB 06/07/24 Logged 09:39 Clostridium Difficile MISSY 06/07/24 Logged Toxin 09:39 Incentive Spirometry ORDERS 06/07/24 Transmitted Q 1hr 09:52 ANNMARIE RIGGS Jun 07, 2024 09:59
[2024-06-07] MEDS: PANTOPRAZOLE 40 MG/10 ML VIAL INJ IV SCH (10:19)
--- NOTE | 2024-06-07 12:05 | DVHPN2 ---
Progress Note - Dictate Date Seen: Jun 07, 2024 Medical Necessity Reason Pt with a Central, PICC or Fol: No Subjective E: no major events o/n. no complaints. vital signs Vital Sign Date Time Temp Pulse Resp B/P (MAP) Pulse Ox O2 Delivery O2 Flow Rate FiO2 06/07/24 08:15 99 Room Air* 0 21 06/07/24 05:00 98.4 101 16 119/63 (81) 98.4 Total Intake and Output 06/06/24 06/06/24 06/07/24 15:00 23:00 07:00 Intake Total 750 ml Output Total 1300 ml Balance -550 ml medications Current Medications Medications Dose Ordered Sig/Kevin Route Start Time Stop Time Status Last Admin Dose Admin Piperacillin Sod/ Tazobactam Sod 100 ml @ 100 mls/hr Q8HR IV 06/06/24 22:00 06/07/24 05:28 100 MLS/HR Oxycodone HCl 10 mg ONCE PRN PO 06/06/24 18:00 06/07/24 08:20 10 MG Hydromorphone HCl 0.5 mg Q4HPRN PRN IV 06/06/24 18:00 Ondansetron HCl 4 mg Q4HPRN PRN IV 06/06/24 18:00 Albuterol 2.5 mg Q4HPRN PRN NEB 06/06/24 18:00 Pantoprazole Sodium 40 mg DAILY IV 06/07/24 10:00 06/07/24 10:19 40 MG objective GEN: NAD ABD: surgical dressings clean and dry. laboratory and microbiology Laboratory Tests 06/07/24 05:23 Test 06/07/24 05:23 Range/Units Serum Glucose 154 H 74-106 mg/dL Assessment/Plan A: 1. s/p lap appendectomy POD #1 doing well P: 1. cont iv abx. 2. dc tomorrow once WBC decreases. Plan discussed with: Patient FIOR ODOM MD Jun 07, 2024 12:04
[2024-06-07] MEDS ORDERED: FLUoxetine HCL 20 MG CAP PO SCH (16:30)
[2024-06-07] MEDS: PANTOPRAZOLE 40 MG TAB PO ONE (16:45)
[2024-06-07] MEDS: FLUoxetine HCL 20 MG CAP PO ONE (17:40)
[2024-06-07] MEDS: LACTATED RINGER'S 1,000 ML IV SCH (18:50)
[2024-06-07] MEDS ORDERED: HYDROmorphone HCL 2 MG/ML VL/or syr IV PRN (19:15)
[2024-06-08] VITALS (11 sets, daily range): BP systolic 111–127; BP diastolic 56–75; PULSE 65–88; RESP 16–20; TEMP 96.6–99.7; O2SAT 94–97
[2024-06-08 04:26] LABS: Basophils # (auto) 0 10 ^3/uL (0-0.2); Basophils % (auto) 0.3 % (0.0-2.0); Eosinophils # (auto) 0 10 ^3/uL (0-0.8); Eosinophils % (auto) 0.4 % (0.0-7.0); Hematocrit 43.4 % (41.0-53.0); Hemoglobin 15.2 g/dL (13.5-17.5); Lymphocytes # (auto) 1.9 10 ^3/uL (0.4-5.4); Lymphocytes % (auto) 17.2 % (10.0-50.0); Mean Corpuscular Hemoglobin 30.5 pg (28.0-32.0); Mean Corpuscular Hgb Conc. 35.1 g/dL (32.0-36.0); Mean Corpuscular Volume 86.8 fL (80.0-100.0); Monocytes # (auto) 1.1 10 ^3/uL (0-1.3); Monocytes % (auto) 9.3 % (0.0-12.0); Neutrophils # (auto) 8.3 10 ^3/uL (1.6-8.6); Neutrophils % (auto) 72.8 % (37.0-80.0); Platelet Count (auto) 147 10^3/uL (140-450); Red Cell Distribution Width 13.2 % (11.8-14.3); White Blood Cell 11.3 10^3/uL (4.4-10.8)
[2024-06-08] MEDS: PANTOPRAZOLE 40 MG TAB PO SCH (05:30)
[2024-06-08] MEDS: FLUoxetine HCL 20 MG CAP PO SCH (10:29)
--- NOTE | 2024-06-08 12:37 | DVHPN2 ---
Progress Note - Dictate Date Seen: Jun 08, 2024 Has the PT tested + for MRSA If YES, has PT been informed?: No Medical Necessity Reason Pt with a Central, PICC or Fol: No Subjective E: no major events o/n. feeling better. kevin po. vital signs Vital Sign Date Time Temp Pulse Resp B/P (MAP) Pulse Ox O2 Delivery O2 Flow Rate FiO2 06/08/24 10:00 94 Room Air 0.0 06/08/24 10:00 21 06/08/24 08:52 99.7 86 20 118/62 (80) 99.7 Total Intake and Output 06/07/24 06/07/24 06/08/24 15:00 23:00 07:00 Intake Total 100 ml 950 ml 850 ml Output Total 550 ml Balance 100 ml 400 ml 850 ml medications Current Medications Medications Dose Ordered Sig/Kevin Route Start Time Stop Time Status Last Admin Dose Admin Piperacillin Sod/ Tazobactam Sod 100 ml @ 100 mls/hr Q8HR IV 06/06/24 22:00 06/08/24 05:30 100 MLS/HR Oxycodone HCl 10 mg ONCE PRN PO 06/06/24 18:00 06/07/24 08:20 10 MG Ondansetron HCl 4 mg Q4HPRN PRN IV 06/06/24 18:00 Albuterol 2.5 mg Q4HPRN PRN NEB 06/06/24 18:00 Cancel Fluoxetine HCl 40 mg DAILY PO 06/07/24 16:30 UNV Fluoxetine HCl 40 mg DAILY PO 06/08/24 10:00 06/08/24 10:29 40 MG Lactated Ringer's 1,000 ml @ 125 mls/hr Q8H IV 06/07/24 16:30 06/08/24 10:30 125 MLS/HR Pantoprazole Sodium 40 mg DAILY@0600 PO 06/08/24 06:00 06/08/24 05:30 40 MG Hydromorphone HCl 0.5 mg Q4HPRN PRN IV 06/07/24 19:15 Oxycodone HCl 10 mg Q6HP PRN PO 06/07/24 20:45 06/07/24 21:04 10 MG objective GEN: NAD ABD: surgical site clean. min ecchymosis around umbilicus. no drainage. laboratory and microbiology Laboratory Tests 06/08/24 04:00 06/07/24 05:23 Test 06/07/24 05:23 Range/Units Serum Glucose 154 H 74-106 mg/dL Assessment/Plan A: 1. s/p lap appendectomy POD #2 doing well P: 1. stable from surgery POV for DC 2. f/u on 06/18 to clinic. call [phone] for appt. Plan discussed with: Patient FIOR ODOM MD Jun 08, 2024 12:37
[2024-06-09] VITALS (8 sets, daily range): BP systolic 11–175; BP diastolic 66–79; PULSE 65–87; RESP 16–18; TEMP 97.3–99.7; O2SAT 92–96
--- NOTE | 2024-06-09 13:10 | DVHDSRES ---
Discharge Summary Date of Admission Resident Creating Document: ANNMARIE RIGGS RESIDENT Jun 06, 2024 at 17:57 Date of Discharge: Jun 09, 2024 Admitting Diagnosis Acute abdominal pain, acute appendicitis. Wounds: Healthy surgical wound, healing appropriately. Labs/Diagnostic Data: Laboratory Results Test 06/08/24 04:00 06/07/24 15:15 06/07/24 05:23 06/06/24 13:59 White Blood Count 11.3 10^3/uL (4.4-10.8) Red Blood Count 5.00 10^6/uL (4.5-5.90) Hemoglobin 15.2 g/dL (13.5-17.5) Hematocrit 43.4 % (41.0-53.0) Mean Corpuscular Volume 86.8 fL (80.0-100.0) Mean Corpuscular Hemoglobin 30.5 pg (28.0-32.0) Mean Corpuscular Hemoglobin Concent 35.1 g/dL (32.0-36.0) Red Cell Distribution Width 13.2 % (11.8-14.3) Platelet Count 147 10^3/uL (140-450) Mean Platelet Volume 8.0 fL (6.9-10.8) Neutrophils (%) (Auto) 72.8 % (37.0-80.0) Lymphocytes (%) (Auto) 17.2 % (10.0-50.0) Monocytes (%) (Auto) 9.3 % (0.0-12.0) Eosinophils (%) (Auto) 0.4 % (0.0-7.0) Basophils (%) (Auto) 0.3 % (0.0-2.0) Neutrophils # (Auto) 8.3 10 ^3/uL (1.6-8.6) Lymphocytes # (Auto) 1.9 10 ^3/uL (0.4-5.4) Monocytes # (Auto) 1.1 10 ^3/uL (0-1.3) Eosinophils # (Auto) 0 10 ^3/uL (0-0.8) Basophils # (Auto) 0 10 ^3/uL (0-0.2) Nucleated Red Blood Cells 0.0 % Stool for White Cells None seen Sodium Level 142 mmol/L (136-145) Potassium Level 4.0 mmol/L (3.5-5.1) Chloride Level 106 mmol/L (98-107) Carbon Dioxide Level 26 mmol/L (20-31) Anion Gap 10 (5-15) Blood Urea Nitrogen 11 mg/dL (9-23) Creatinine 0.88 mg/dL (0.700-1.30) Glomerular Filtration Rate Calc 118 mL/min (>90) BUN/Creatinine Ratio 12.5 (10.0-20.0) Serum Glucose 154 mg/dL (74-106) Calcium Level 9.7 mg/dL (8.7-10.4) Urine Color Yellow (Yellow) Urine Clarity Clear (Clear) Urine pH 5.5 (5.0-9.0) Urine Specific [place] 1.030 (1.001-1.035) Urine Protein Trace (Negative) Urine Ketones Negative (Negative) Urine Blood Negative /uL (Negative) Urine Nitrite Negative (Negative) Urine Bilirubin Negative (Negative) Urine Urobilinogen Normal mg/dL (Negative) Urine Leukocyte Esterase Negative /uL (Negative) Urine RBC 1 /hpf (0 - 3) Urine WBC 1 /hpf (0 - 3) Urine Squamous Epithelial Cells Few /hpf (<5) Urine Bacteria None seen /hpf (None Seen) Urine Mucus Few (None Seen) Urine Glucose Normal mg/dL (Normal) Urine Opiates Screen Neg (NEGATIVE) Urine Fentanyl Screen Neg (NEGATIVE) Urine Barbiturates Screen Neg (NEGATIVE) Urine Phencyclidine Screen Neg (NEGATIVE) Urine Amphetamines Screen Neg (NEGATIVE) Urine Benzodiazepines Screen Neg (NEGATIVE) Urine Cocaine Screen Neg (NEGATIVE) Urine Cannabinoids Screen Neg (NEGATIVE) Test 06/06/24 13:20 Lactic Acid Level 0.7 mmol/L (0.4-2.0) Total Bilirubin 1.0 mg/dL (0.2-1.0) Aspartate Amino Transferase (AST) 17 U/L (13-40) Alanine Aminotransferase (ALT) 64 U/L (7-40) Alkaline Phosphatase 81 U/L (46-116) Troponin I High Sensitivity < 3 ng/L (</=54) Total Protein 8.0 g/dL (5.7-8.2) Albumin 5.1 g/dL (3.2-4.8) Lipase 35 U/L (12-53) Other Laboratory Tests 06/08/24 04:00 06/07/24 05:23 Brief Hx & Hospital Course: Hospital Course: Mr. Miesha Kennedy, 33-year-old young male with past medical history significant for asthma, anxiety/depression, and GERD presented to the emergency department with right lower quadrant abdominal pain, decreased appetite, and constipation, but no fever, chills, nausea, vomiting, chest pain, headache, dizziness, diaphoresis, or shortness of breath. He was admitted for further evaluation and medical management. His past medical history includes, with no past surgical history. Family history is noncontributory. He does not smoke, rarely drinks alcohol, does not use drugs, and lives with his family. patient was evaluated by surgical team, consulted Dr. Odom and undergone laparoscopic appendicectomy on 06/06/2024. Post surgical date 3, patient is hemodynamically stable, afebrile, passing of bladder and bowel Without difficulty. Medical conditions treated in hospital: # Acute appendicitis status post appendicectomy by Dr. Odom. # Pancolitis noted in CT abdomen , status post IV antibiotics asymptomatic no abdominal pain. . # Hepatic steatosis, counseled regarding lifestyle modification. # Possible gastroenteritis , symptoms subsided. # post surgical care with 5 days of Augmentin 875 b.i.d. At discharge patient will follow with Dr. Odom's clinic. # history of asthma , as needed albuterol. # anxiety/depression: Seroquel 50 mg to continue at home dose. Case discussed with Dr. Buckley. Code status: Full code. Complex patient care discussion needed total 39 minutes. Discharge planning needed total 45 minutes of Detailed discussion. Follow up in the discharge clinic next week. Surgery Dr. Fior Odom , f/u on 06/18 to clinic. patient agreed to the plan. Consults/Reason for consult Surgery Operations or Procedures Status post laparoscopic appendicectomy [place] [address] Ph: [phone] DIAGNOSTIC IMAGING Diagnostic Imaging Report : [id number] Signed PATIENT: TOM DAMON ACCT: [id number] UNIT: [id number] : 1990 LOC: ER ROOM / BED: / AGE / SEX: 33 / M ADM STATUS: REG ER SERVICE [id number] ORDERING PHYSICIAN: TRINITY MARTINEZ DO PROCEDURE(s): ABPL - CT AB PEL WO CON-NO ORAL OR IV REASON: right abd pain ORDER NUMBER(s): [id number], ACCESSION NUMBER(s): [id number] Exam: CT CT AB PEL WO CON-NO ORAL OR IV History: right abd pain Comparison Study: None available at time of dictation. Technique: Multidetector CT of the abdomen and pelvis without contrast. Axial, coronal and sagittal multiplanar reformats were performed by the technologist on a separate workstation. Radiation Dose Information: CT Dose: CTDI volume is 13.43 mGy. Dose-length product is 676.56 mGy*cm Findings: Lung bases are clear. Partially visualized heart is unremarkable. Mild hepatomegaly with hepatic steatosis. Mild splenomegaly with no focal splenic lesions. Gallbladder, pancreas and adrenal glands unremarkable. Kidneys, ureters and urinary bladder unremarkable. Prostate measures 3.5 by 4.5 cm. Mild gastric wall thickening with mild wall thickening of the proximal duodenum. Wall thickening of the mildly distended terminal ileum. The remainder of the small bowel loops unremarkable. Appendix measures up to 1.2 cm with appendicoliths proximally and distally and adjacent inflammatory reaction. Mild wall thickening of the ascending, transverse and descending colons. The sigmoid and rectum are unremarkable. No evidence of intraperitoneal free air. Trace amount of free fluid within the pelvis which is most likely from the acute appendicitis. No evidence of aortic aneurysm. Shotty mesenteric lymph nodes. Small fat containing umbilical hernia. Sclerotic focus of the left acetabulum with small sclerotic foci of the bilateral proximal femur which may represent a bone islands/blastic lesions. IMPRESSION: Findings consistent with acute appendicitis. Colitis involving ascending colon, transverse colon and descending colon. Mild wall thickening of the stomach and duodenum which may be due to inadequate distention with gastroenteritis not excluded. Wall thickening of the terminal ileum correlate for ileitis/ neoplasm. Hepatomegaly with hepatic steatosis. ATED BY: SHIVANI QUINTANA DO DICTATED DATE/TIME: 06/06/24 1442 SIGNED BY: SHIVANI QUINTANA DO SIGNED DATE/TIME: 06/06/24 1442 CC: RUN DATE: 06/09/24 PAGE 1 RUN TIME: 1067 [facility] [address] Alirio, M.D., Laboratory Regional Guide - PATIENT: TOM DAMON ACCT: [id number] LOC: [facility] U: [id number] AGE/SX: 33/M ROOM: [facility] RE06/06/[address]: AMOR BUCKLEY MD : 1990 BED: A DIS: STATUS: ADM IN TLOC: - SPEC #: [id number] DANIELE: 06/07/24-1514 STATUS: RES REQ #: [id number] RECD: 06/08/24-[address] [facility] [address]: ANNMARIE RIGGS RESIDENT SOURCE: STOOL ENTR: 06/07/[address] [facility] [address]: FIOR ODOM MD SPDESC: DANIEL HARRIS [employer] SECURITY MANAGER ORDERED: ST COMMENTS: RN CALLED @2106 STATED C DIFF NOT NEEDED- LBAG [id number] NO SPECIMEN IN LAB [id number] CAS - Procedure Result - Stool Culture Preliminary Report No Campylobacter antigen detected Shiga Toxin 1&2 Final Shiga Toxin 1 Negative (-) Shiga Toxin 2 Negative (-) Consistency SOFT END OF REPORT Condition at Discharge: Good Final Diagnosis/Problems List S/P LAP APPENDECTOMY Discharge Disposition: Home Discharge Instruct/Medications Diet: Regular Activity: No Restrictions, As Tolerated Activity comment: please use abdominal binder while walking and avoid straining and heavy object elevation over 5 kg ie 10 pounds approximately. Follow Up/Referral: Follow up in the discharge clinic next week. Surgery Dr. Fior Odom , f/u on 06/18 to clinic. call [phone] for appt. Medications: Please take Augmentin twice a day for total 5 days. Discharge Statement: "Patient was advised to return to the ER or call 911 if any headaches, dizziness, shortness of breath, chest pain, abdominal pain, bleeding, fevers, or worsening of medical condition. Patient was counseled about treatment plan, medications, possible side effects, patientverbalized understanding. All questions were answered to the best of my ability. This discharge took greater then 30 minutes in planning, reviewing documentation, counseling the patient, and discussing with other team members." ASSESSMENT ASSESSMENT Assessment S/P LAP APPENDECTOMY Date of Service: Jun 09, 2024 Billing Provider: AMOR BUCKLEY MD Common Visit Codes: 54315-JQB/OBS DISCH DAY <30MIN ANNMARIE RIGGS Jun 09, 2024 13:10 AMOR BUCKLEY MD Jun 09, 2024 16:28
[2024-06-09] MEDS ORDERED: AUG875T PO ×2 (14:48→16:29)
== END 2024-06-09 16:10 | disposition home or self-care (01) | DRG 854 ==
LOC: ER 12:36 → TELE 17:57 → EAST 18:43
PROVIDERS: ADMIT Registered Nurse General Practice; ATTEND Internal Medicine
PROC: 0DTJ4ZZ Resection of Appendix, Percutaneous Endoscopic Approach (ICD-10-PCS; principal; 2024-06-06 16:43)
DX: A41.9 Sepsis, unspecified organism (principal); K35.80 Unspecified acute appendicitis; D72.829 Elevated white blood cell count, unspecified; J45.909 Unspecified asthma, uncomplicated; K52.9 Noninfective gastroenteritis and colitis, unspecified; K21.9 Gastro-esophageal reflux disease without esophagitis; K76.0 Fatty (change of) liver, not elsewhere classified; F32.A Depression, unspecified; F41.9 Anxiety disorder, unspecified
CPT/HCPCS: 36415; 74176; 80048; 80053; 80307; 81001; 83605; 83690; 84484; 85025; 85048; 87045; 87427; 93005; G0378; J0131; J1100; J1885; J2003; J2405; J2470; J2543; J2704